=== PATIENT | female | born 1960 | race Caucasian/White ===

== ENCOUNTER 2016-11-16 14:08 | Inpatient (IN) | payer OTHER ==
[~2016-11-16] VITALS: Ht 147.3 cm; Wt 108.4 kg
--- NOTE | ~2016-11-16 | EKG ---
[place], [place] ELECTROCARDIOGRAM REPORT NAME: REN SOOD UNIT #: [id number] ROOM: [facility] DOCTOR: JEANA MACIAS MD BIRTHDATE: [birth year] DOS: 11/16/2016 TIME: 1501 hours. Sinus tachycardia at 109 beats per minute. Low voltage in precordial leads. No previous tracing is available for comparison. JEANA MACIAS MD CM:EKGRPT:ELECTROCARDIOGRAM REPORT [id number] JEANA MACIAS MD
--- NOTE | ~2016-11-16 | EKG ---
[place], [place] ELECTROCARDIOGRAM REPORT NAME: REN SOOD UNIT #: [id number] ROOM: [facility] DOCTOR: JEANA MACIAS MD BIRTHDATE: [birth year] DOS: 11/17/2016 TIME: 0648 hours. Sinus tachycardia with normal sinus rhythm at 99 beats per minute. The tracing is normal. No previous tracing is available for comparison. JEANA MACIAS MD CM:EKGRPT:ELECTROCARDIOGRAM REPORT [id number] JEANA MACIAS MD
[~2016-11-16 14:08] MED LIST: AMLODIPINE BESY1 TAB PO; AMLODIPINE BESYL5 MG PO; ATORVASTATIN CA10 M1 PO; AVELOX400 MG PO; CLARITIN10 MG PO; COZAAR100 MG PO; CYCLOBENZAPRINE5 M3 PO; CYMBALTA60 MG PO; DOXYCYCLINE MO100 M1 PO; FLUTICASON0.05 MG/AC NAS; GABAPENTIN600 MG PO; GEMFIBROZIL600 MG PO; HYDROCHLOROTHIA25 M1 PO; HYDROCODONE BIT1 T11 PO; INVANZ1 GM/50 ML IV; LAMICTAL200 MG PO; LANTUS100 U/ML SC; LIPITOR10 MG PO; LOPRESSOR25 MG PO; Lopressor25 MG PO; NATURE'S BLEND F1 MG PO; NORVASC10 MG PO; NOVOLOG10 ML SC; PRAVASTATIN SOD20 MG PO; PRILOSEC20 M1 PO; SINGULAIR10 M1 PO; VENTOLIN H0.09 MG/AC INH
[2016-11-16 14:14] VITALS: BP 144/69
[2016-11-16 15:00] VITALS: BP 134/62
[2016-11-16 15:03] LABS: BASO % 0.3 % (0.0-1.0); EOS # 0.2 10*3/uL (0.0-0.4); EOS % 1.1 % (1.0-4.0); HEMATOCRIT 37.3 % (37.0-47.0); HEMOGLOBIN 11.8 g/dl (12.0-16.0); IG # 0.1 10*3/uL (0.0-0.1); LYMPH # 3.8 10*3/uL (1.3-4.4); LYMPH % 27.4 % (27.0-41.0); MEAN CELL VOLUME 92.3 fl (81.0-99.0); MEAN CORPUSCULAR HGB 29.2 pg (27.0-31.0); MEAN CORPUSCULAR HGB CONC 31.6 g/dl (33.0-37.0); MEAN PLATELET VOLUME 10.7 fl (9.6-12.3); MONO # 0.9 10*3/uL (0.1-1.0); MONO % 6.4 % (3.0-9.0); NEUT % 64.3 % (47.0-73.0); PLATELET COUNT AUTOMATED 315 10*3/uL (130-400); RED BLOOD COUNT 4.04 10*6/uL (4.10-5.10); RED CELL DISTRI WIDTH 13.4 % (0-14.5); WHITE BLOOD COUNT 13.9 10*3/uL (4.8-10.8)
[2016-11-16 15:33] LABS: ALKALINE PHOSPHATASE 122 U/L (45-117); BILIRUBIN, TOTAL 0.2 mg/dl (0.2-1.0); BUN 21 mg/dl (7-24); CARBON DIOXIDE 25 mmol/L (21-32); CHLORIDE 103 mmol/L (98-107); EST GLOM FILT AFRICAN AMERICAN > 60 ml/min; GLUCOSE 210 mg/dL (65-99); POTASSIUM 3.9 mmol/L (3.5-5.1); SGOT/AST 24 IU/L (3-35); SGPT/ALT 23 U/L (12-78); SODIUM 139 mmol/L (136-145); TOTAL PROTEIN 6.7 gm/dL (6.4-8.2)
[2016-11-16 15:34] LABS: INTERNATIONAL NORM RATIO 0.9 (2.0-3.5); PROTHROMBIN TIME 9.6 SECONDS (9.0-12.4)
[2016-11-16 15:39] LABS: TROPONIN I < 0.015 ng/ml (<0.045)
[2016-11-16 16:00] VITALS: BP 140/62
[2016-11-16 17:00] VITALS: BP 136/70
[2016-11-16 18:45] VITALS: BP 130/50
[2016-11-16] MEDS ORDERED: ATIVAN0.5 MG PO (18:56)
[2016-11-16 19:06] LABS: BILIRUBIN NEGATIVE (NEGATIVE); BLOOD 3+ (NEGATIVE); CLARITY CLEAR (CLEAR); COLOR YELLOW (YELLOW); GLUCOSE NEGATIVE (NEGATIVE); KETONE NEGATIVE (NEGATIVE); LEUKO ESTERASE NEGATIVE (NEGATIVE); NITRITE NEGATIVE (NEGATIVE); PROTEIN 2+ (NEGATIVE); UROBILINOGEN 0.2 E.U./dl (0.2-1.0)
[2016-11-16 19:13] LABS: BACTERIA 4+; RBC 16-20 rbc/hpf (0-2); URINE REFLEX COMMENT YES (NO)
[2016-11-16 20:00] VITALS: BP 149/50
[2016-11-17] VITALS: BP 107/55
[2016-11-17 06:58] LABS: BASO % 0.3 % (0.0-1.0); EOS # 0.2 10*3/uL (0.0-0.4); EOS % 1.6 % (1.0-4.0); HEMATOCRIT 38.7 % (37.0-47.0); IG # 0.1 10*3/uL (0.0-0.1); LYMPH # 3.3 10*3/uL (1.3-4.4); MEAN CELL VOLUME 93.3 fl (81.0-99.0); MEAN CORPUSCULAR HGB 28.9 pg (27.0-31.0); MEAN PLATELET VOLUME 10.6 fl (9.6-12.3); MONO # 0.9 10*3/uL (0.1-1.0); MONO % 7.3 % (3.0-9.0); NEUT # 8.1 10*3/uL (2.3-7.9); NEUT % 64.3 % (47.0-73.0); PLATELET COUNT AUTOMATED 315 10*3/uL (130-400); RED BLOOD COUNT 4.15 10*6/uL (4.10-5.10); RED CELL DISTRI WIDTH 13.5 % (0-14.5); WHITE BLOOD COUNT 12.6 10*3/uL (4.8-10.8)
[2016-11-17 07:10] LABS: HEMOGLOBIN A1c 10.9 % (4.8-5.6)
[2016-11-17 07:28] LABS: ALBUMIN 3.1 gm/dl (3.1-4.5); CARBON DIOXIDE 29 mmol/L (21-32); CHLORIDE 105 mmol/L (98-107); GLUCOSE 160 mg/dL (65-99); MAGNESIUM 2.1 mg/dL (1.5-2.1); POTASSIUM 3.8 mmol/L (3.5-5.1); SODIUM 140 mmol/L (136-145)
[2016-11-17 07:29] LABS: INTERNATIONAL NORM RATIO 0.9 (2.0-3.5); PROTHROMBIN TIME 9.6 SECONDS (9.0-12.4)
[2016-11-17 07:37] LABS: ALKALINE PHOSPHATASE 115 U/L (45-117); BILIRUBIN, TOTAL 0.2 mg/dl (0.2-1.0); BUN 14 mg/dl (7-24); CHOLESTEROL 156 mg/dL (<200); EST GLOM FILT AFRICAN AMERICAN > 60 ml/min; FREE T4 1.08 ng/dl (0.76-1.46); HDL CHOLESTEROL 58 mg/dl (40-60); LDL CHOLESTEROL 62 mg/dL (9-159); PHOSPHOROUS 4.1 mg/dL (2.5-4.9); SGOT/AST 23 IU/L (3-35); SGPT/ALT 25 U/L (12-78); TOTAL PROTEIN 6.4 gm/dL (6.4-8.2); TRIGLYCERIDES 181 mg/dl (<150); VLDL CHOLESTEROL 36 mg/dL (6-40)
[2016-11-17 08:00] VITALS: BP 150/72
[2016-11-17 12:00] VITALS: BP 111/62
[2016-11-17 16:00] VITALS: BP 130/57
[2016-11-17 20:00] VITALS: BP 139/53
[2016-11-18] VITALS: BP 126/68
[2016-11-18 08:00] VITALS: BP 92/54
[2016-11-18 12:00] VITALS: BP 154/80
[2016-11-18] MEDS ORDERED: D-1000 185 MG-11 TAB PO (12:27)
== END 2016-11-18 14:41 | disposition home or self-care (01) | DRG 641 ==
LOC: ED 14:08 → 5E 17:22 → EDHOLD 17:22 → 5E 18:01
PROVIDERS: Family Medicine; Internal Medicine; Physician Assistant
DX: E86.0 Dehydration (principal); K52.9 Noninfective gastroenteritis and colitis, unspecified; I11.0 Hypertensive heart disease with heart failure; E44.0 Moderate protein-calorie malnutrition; I50.32 Chronic diastolic (congestive) heart failure; E11.65 Type 2 diabetes mellitus with hyperglycemia; F33.9 Major depressive disorder, recurrent, unspecified; Z68.42 Body mass index [BMI] 45.0-49.9, adult; E78.5 Hyperlipidemia, unspecified; F41.9 Anxiety disorder, unspecified; J45.909 Unspecified asthma, uncomplicated; R00.0 Tachycardia, unspecified; E66.01 Morbid (severe) obesity due to excess calories; D64.9 Anemia, unspecified; E55.9 Vitamin D deficiency, unspecified; K21.9 Gastro-esophageal reflux disease without esophagitis; G47.33 Obstructive sleep apnea (adult) (pediatric); Z87.81 Personal history of (healed) traumatic fracture; Z82.49 Family history of ischemic heart disease and other diseases of the circulatory system; Z83.6 Family history of other diseases of the respiratory system; Z79.899 Other long term (current) drug therapy; Z79.4 Long term (current) use of insulin; Z88.6 Allergy status to analgesic agent; Z98.891 History of uterine scar from previous surgery; Z90.49 Acquired absence of other specified parts of digestive tract

== ENCOUNTER 2017-07-12 14:27 | Inpatient (IN) | payer OTHER ==
[~2017-07-12] VITALS: Ht 157.4 cm; Wt 83.6 kg
--- NOTE | ~2017-07-12 | PROC NOTE ---
[place], [place] PROCEDURE NOTE NAME: RNE SOOD UNIT #: [id number] ROOM: [facility] DOCTOR: CONSUELO MOLINA DO BIRTHDATE: [birth year] DOS: 07/13/2017 PROCEDURE: Lumbar puncture. INDICATION: Increased confusion, sepsis. The patient was able to cooperate with the procedure and ____ no verbal consent could be obtained as she is unable to give it at this time due to her mental status. The patient was placed on a monitor with airway cart and crash cart at bedside, nonrebreather was placed on the patient, 80 mg of ketamine was then administered via IV push. The patient was laid in the lateral recumbent side. Landmarks were noted in the usual fashion using the iliac crest as a guideline. Skin was cleansed with povidone in three concentric circles using three separate swabs. Sterile drape was placed. The patient was anesthetized with 1% lidocaine. Lumbar puncture needle was inserted. The FOOD SERVICE SALES REPRESENTATIVES space could not be cannulated. No IV fluid was obtained. Procedure was unsuccessful. CONSUELO MOLINA DO CM:PROCNOTE:PROCEDURE NOTE [id number] CONSUELO MOLINA DO
[~2017-07-12 14:27] MED LIST changes: +ATIVAN0.5 MG PO; +D-1000 185 MG-11 TAB PO
[2017-07-12 14:39] VITALS: BP 148/74
[2017-07-12 15:00] VITALS: BP 148/70
[2017-07-12 15:04] LABS: HEMATOCRIT 40.7 % (37.0-47.0); HEMOGLOBIN 12.9 g/dl (12.0-16.0); MEAN CORPUSCULAR HGB 31.4 pg (27.0-31.0); MEAN CORPUSCULAR HGB CONC 31.7 g/dl (33.0-37.0); MEAN PLATELET VOLUME 10.2 fl (9.6-12.3); PLATELET COUNT AUTOMATED 402 10*3/uL (130-400); RED BLOOD COUNT 4.11 10*6/uL (4.10-5.10); RED CELL DISTRI WIDTH 14.1 % (0-14.5); WHITE BLOOD COUNT 25.3 10*3/uL (4.8-10.8)
[2017-07-12] MEDS ORDERED: LOPID600 M1 PO (15:09)
[2017-07-12 15:20] LABS: ALBUMIN 2.3 gm/dl (3.1-4.5); CREATININE 1.24 mg/dL (0.55-1.02); POTASSIUM 4.9 mmol/L (3.5-5.1); TOTAL PROTEIN 7.6 gm/dL (6.4-8.2)
[2017-07-12 15:30] VITALS: BP 146/80
[2017-07-12 15:33] LABS: POLYCHROMASIA SLIGHT; TOTAL CELLS COUNTED 100 #CELLS
[2017-07-12 15:34] LABS: PLATELET SUFFICIENCY HIGH (NORMAL)
[2017-07-12 15:42] LABS: BILIRUBIN 1+ (NEGATIVE); BLOOD 3+ (NEGATIVE); CLARITY CLOUDY (CLEAR); COLOR YELLOW (YELLOW); GLUCOSE 3+ (NEGATIVE); KETONE 3+ (NEGATIVE); LEUKO ESTERASE NEGATIVE (NEGATIVE); NITRITE NEGATIVE (NEGATIVE); SPECIFIC GRAVITY 1.025 (1.005-1.030); UROBILINOGEN 0.2 E.U./dl (0.2-1.0)
[2017-07-12 15:52] LABS: RBC TNTC rbc/hpf (0-2)
[2017-07-12 15:53] LABS: BACTERIA 2+
[2017-07-12 16:00] VITALS: BP 166/81
[2017-07-12 16:17] LABS: ABG HCO3 6.2 mmol/l (22-26); ABG O2 SATURATION 96.7 % (95-97); ARTERIAL BLOOD GAS PCO2 16.8 mmHg (35-45)
[2017-07-12 16:20] LABS: ABG BASE EXCESS -20.9 mmol/L (-2.0-2.0); ARTERIAL BLOOD GAS PH 7.189 (7.35-7.45)
[2017-07-12 17:00] VITALS: BP 153/73
[2017-07-12 19:04] LABS: URINE AMPHETAMINES < 1000 (1000ng/ml); URINE BARBITURATES < 200 (200ng/ml); URINE BENZODIAZEPINES < 200 (200ng/ml); URINE CANNABINOIDS (THC) < 50 (50ng/ml); URINE COCAINE < 300 (300ng/ml); URINE METHADONE < 300 (300ng/ml); URINE OPIATES < 300 (300ng/ml); URINE PHENCYCLIDINE < 25 (25ng/ml)
[2017-07-12 20:00] VITALS: BP 141/72
[2017-07-12 20:31] LABS: BUN 13 mg/dl (7-24); CHLORIDE 113 mmol/L (98-107); CREATININE 1.02 mg/dL (0.55-1.02); SODIUM 145 mmol/L (136-145)
[2017-07-12 23:22] LABS: BUN 12 mg/dl (7-24); CHLORIDE 118 mmol/L (98-107); CREATININE 0.94 mg/dL (0.55-1.02); POTASSIUM 3.3 mmol/L (3.5-5.1); SODIUM 148 mmol/L (136-145)
[2017-07-13] VITALS: BP 144/47
[2017-07-13 02:31] LABS: BUN 11 mg/dl (7-24); CHLORIDE 120 mmol/L (98-107); CREATININE 0.79 mg/dL (0.55-1.02); POTASSIUM 2.8 mmol/L (3.5-5.1); SODIUM 151 mmol/L (136-145)
[2017-07-13 04:00] VITALS: BP 151/60
[2017-07-13 05:55] LABS: HEMATOCRIT 35.2 % (37.0-47.0); HEMOGLOBIN 11.2 g/dl (12.0-16.0); MEAN CELL VOLUME 96.7 fl (81.0-99.0); MEAN CORPUSCULAR HGB 30.8 pg (27.0-31.0); MEAN CORPUSCULAR HGB CONC 31.8 g/dl (33.0-37.0); PLATELET COUNT AUTOMATED 329 10*3/uL (130-400); RED BLOOD COUNT 3.64 10*6/uL (4.10-5.10); RED CELL DISTRI WIDTH 14.1 % (0-14.5); WHITE BLOOD COUNT 19.2 10*3/uL (4.8-10.8)
[2017-07-13 05:58] LABS: ALBUMIN 1.7 gm/dl (3.1-4.5); ALKALINE PHOSPHATASE 135 U/L (45-117); BUN 12 mg/dl (7-24); CHLORIDE 120 mmol/L (98-107); CHOLESTEROL 152 mg/dL (<200); CREATININE 0.79 mg/dL (0.55-1.02); HDL CHOLESTEROL 35 mg/dl (40-60); LDL CHOLESTEROL 73 mg/dL (9-159); PHOSPHOROUS 1.6 mg/dL (2.5-4.9); POTASSIUM 3.7 mmol/L (3.5-5.1); SGOT/AST 66 IU/L (3-35); SGPT/ALT 18 U/L (12-78); SODIUM 150 mmol/L (136-145); TOTAL PROTEIN 5.9 gm/dL (6.4-8.2); TRIGLYCERIDES 219 mg/dl (<150); VLDL CHOLESTEROL 44 mg/dL (6-40)
[2017-07-13 06:00] LABS: TROPONIN I 0.625 ng/ml (<0.045)
[2017-07-13 06:09] LABS: ACT PARTIAL THROMBO TIME 27.5 SECONDS (20.8-31.5); INTERNATIONAL NORM RATIO 0.9 (2.0-3.5)
[2017-07-13 06:28] LABS: BURR CELLS FEW; PLATELET SUFFICIENCY NORMAL (NORMAL); TOTAL CELLS COUNTED 100 #CELLS
[2017-07-13 06:46] LABS: VITAMIN D, 25-HYDROXY 9.1 ng/mL (30-100)
[2017-07-13 08:00] VITALS: BP 142/63
[2017-07-13 08:54] LABS: BUN 12 mg/dl (7-24); CHLORIDE 122 mmol/L (98-107); CREATININE 0.89 mg/dL (0.55-1.02); POTASSIUM 3.7 mmol/L (3.5-5.1); SODIUM 151 mmol/L (136-145)
[2017-07-13 09:30] LABS: ABG HCO3 18.5 mmol/l (22-26); ARTERIAL BLOOD GAS PCO2 38.6 mmHg (35-45); ARTERIAL BLOOD GAS PH 7.299 (7.35-7.45)
[2017-07-13 09:32] LABS: ABG BASE EXCESS -7.1 mmol/L (-2.0-2.0)
[2017-07-13 11:46] LABS: BUN 12 mg/dl (7-24); CHLORIDE 121 mmol/L (98-107); CREATININE 0.88 mg/dL (0.55-1.02); POTASSIUM 3.8 mmol/L (3.5-5.1); SODIUM 149 mmol/L (136-145)
[2017-07-13 12:00] VITALS: BP 125/65
[2017-07-13 16:00] VITALS: BP 133/89
[2017-07-13] MEDS ORDERED: ENOXAPARIN100 MG/1 M SC (17:25)
[2017-07-13 19:42] VITALS: BP 124/53
[2017-07-17 22:06] LABS: PARAINFLUENZA 2 CF Negative (Neg:<1:8); PARAINFLUENZA 3 CF 1:32 (Neg:<1:8)
[2017-07-18 09:07] LABS: MYCOPLASMA PNEUMONIAE IGG 100 U/mL (0-99); MYCOPLASMA PNEUMONIAE IGG 137 U/mL (0-99); MYCOPLASMA PNEUMONIAE IGM <770 U/mL (0-769)
== END 2017-07-13 20:01 | disposition short-term general hospital (02) | DRG 871 ==
LOC: ED 14:27 → ICCU 16:00 → EDHOLD 16:00 → ICCU 16:08
PROVIDERS: Emergency Medicine; Hospitalist; Internal Medicine
PROC: 02HV33Z Insertion of Infusion Device into Superior Vena Cava, Percutaneous Approach (ICD-10-PCS; 2017-07-12)
PROC: B548ZZA Ultrasonography of Superior Vena Cava, Guidance (ICD-10-PCS; 2017-07-12)
PROC: 00JU3ZZ Inspection of Spinal Canal, Percutaneous Approach (ICD-10-PCS; principal; 2017-07-13)
DX: A41.9 Sepsis, unspecified organism (principal); E10.10 Type 1 diabetes mellitus with ketoacidosis without coma; N17.0 Acute kidney failure with tubular necrosis; G93.41 Metabolic encephalopathy; E43 Unspecified severe protein-calorie malnutrition; J18.9 Pneumonia, unspecified organism; E10.40 Type 1 diabetes mellitus with diabetic neuropathy, unspecified; I50.32 Chronic diastolic (congestive) heart failure; L97.929 Non-pressure chronic ulcer of unspecified part of left lower leg with unspecified severity; I24.8 Other forms of acute ischemic heart disease; R65.20 Severe sepsis without septic shock; D47.3 Essential (hemorrhagic) thrombocythemia; B37.2 Candidiasis of skin and nail; F41.9 Anxiety disorder, unspecified; G89.29 Other chronic pain; F32.9 Major depressive disorder, single episode, unspecified; M25.511 Pain in right shoulder; M25.512 Pain in left shoulder; K21.9 Gastro-esophageal reflux disease without esophagitis; J45.909 Unspecified asthma, uncomplicated; E66.01 Morbid (severe) obesity due to excess calories; G47.33 Obstructive sleep apnea (adult) (pediatric); R00.0 Tachycardia, unspecified; D72.810 Lymphocytopenia; E78.2 Mixed hyperlipidemia; R74.0 Nonspecific elevation of levels of transaminase and lactic acid dehydrogenase [LDH]; E53.8 Deficiency of other specified B group vitamins; D64.9 Anemia, unspecified; E55.9 Vitamin D deficiency, unspecified; I11.0 Hypertensive heart disease with heart failure; E78.5 Hyperlipidemia, unspecified; R74.8 Abnormal levels of other serum enzymes; Z90.49 Acquired absence of other specified parts of digestive tract; Z88.6 Allergy status to analgesic agent; Z79.4 Long term (current) use of insulin; Z79.899 Other long term (current) drug therapy; Z83.6 Family history of other diseases of the respiratory system; Z82.49 Family history of ischemic heart disease and other diseases of the circulatory system; Z91.19 Patient's noncompliance with other medical treatment and regimen; Z68.33 Body mass index [BMI] 33.0-33.9, adult

== ENCOUNTER 2017-08-22 21:05 | Emergency (ER) | payer OTHER ==
[~2017-08-22] VITALS: Ht 167.6 cm; Wt 99.8 kg
[~2017-08-22 21:05] MED LIST changes: +ENOXAPARIN100 MG/1 M SC; +LOPID600 M1 PO
[2017-08-22 23:22] LABS: BASO % 0.4 % (0.0-1.0); EOS # 0.2 10*3/uL (0.0-0.4); EOS % 1.8 % (1.0-4.0); HEMATOCRIT 31.6 % (37.0-47.0); HEMOGLOBIN 10.1 g/dl (12.0-16.0); LYMPH # 1.9 10*3/uL (1.3-4.4); LYMPH % 17.1 % (27.0-41.0); MEAN CELL VOLUME 93.8 fl (81.0-99.0); MEAN PLATELET VOLUME 9.5 fl (9.6-12.3); MONO # 0.9 10*3/uL (0.1-1.0); MONO % 7.9 % (3.0-9.0); NEUT # 8.1 10*3/uL (2.3-7.9); NEUT % 72.4 % (47.0-73.0); PLATELET COUNT AUTOMATED 288 10*3/uL (130-400); RED BLOOD COUNT 3.37 10*6/uL (4.10-5.10); RED CELL DISTRI WIDTH 14.7 % (0-14.5); WHITE BLOOD COUNT 11.1 10*3/uL (4.8-10.8)
[2017-08-22 23:36] LABS: ALBUMIN 2.8 gm/dl (3.1-4.5); ALKALINE PHOSPHATASE 122 U/L (45-117); BUN 18 mg/dl (7-24); CHLORIDE 101 mmol/L (98-107); CREATININE 0.86 mg/dL (0.55-1.02); POTASSIUM 4.1 mmol/L (3.5-5.1); SGOT/AST 12 IU/L (3-35); SGPT/ALT 15 U/L (12-78); SODIUM 137 mmol/L (136-145)
== END 2017-08-23 02:22 | disposition home or self-care (01) ==
LOC: ED 21:05
PROVIDERS: Physician Assistant
DX: S40.012A Contusion of left shoulder, initial encounter (principal); S00.83XA Contusion of other part of head, initial encounter; E11.65 Type 2 diabetes mellitus with hyperglycemia; Z98.890 Other specified postprocedural states; Z90.49 Acquired absence of other specified parts of digestive tract; Z79.899 Other long term (current) drug therapy; Z79.4 Long term (current) use of insulin; Z88.6 Allergy status to analgesic agent; W01.0XXA Fall on same level from slipping, tripping and stumbling without subsequent striking against object, initial encounter; Y93.89 Activity, other specified; Y92.89 Other specified places as the place of occurrence of the external cause; Y99.9 Unspecified external cause status

== ENCOUNTER → 2017-11-21 | Outpatient (CLI) | payer OTHER ==
[2017-11-21 10:40] LABS: ALBUMIN 2.9 gm/dl (3.1-4.5); ALKALINE PHOSPHATASE 125 U/L (45-117); BUN 20 mg/dl (7-24); CHLORIDE 104 mmol/L (98-107); CHOLESTEROL 139 mg/dL (<200); CREATININE 0.98 mg/dL (0.55-1.02); HDL CHOLESTEROL 55 mg/dl (40-60); LDL CHOLESTEROL 62 mg/dL (9-159); POTASSIUM 4.6 mmol/L (3.5-5.1); SGOT/AST 10 IU/L (3-35); SGPT/ALT 19 U/L (12-78); SODIUM 139 mmol/L (136-145); TRIGLYCERIDES 109 mg/dl (<150); VLDL CHOLESTEROL 22 mg/dL (6-40)
[2017-11-21 10:53] LABS: HEMATOCRIT 36.8 % (37.0-47.0); HEMOGLOBIN 11.1 g/dl (12.0-16.0); MEAN CELL VOLUME 87.6 fl (81.0-99.0); MEAN CORPUSCULAR HGB 26.4 pg (27.0-31.0); MEAN CORPUSCULAR HGB CONC 30.2 g/dl (33.0-37.0); MEAN PLATELET VOLUME 10.9 fl (9.6-12.3); RED BLOOD COUNT 4.2 10*6/uL (4.10-5.10); RED CELL DISTRI WIDTH 13.8 % (0-14.5); WHITE BLOOD COUNT 9.9 10*3/uL (4.8-10.8)
== END | disposition home or self-care (01) ==
LOC: LAB 09:39
PROVIDERS: Registered Nurse Flight
DX: Z13.29 Encounter for screening for other suspected endocrine disorder (principal); E10.65 Type 1 diabetes mellitus with hyperglycemia; I10 Essential (primary) hypertension; E78.00 Pure hypercholesterolemia, unspecified; E55.9 Vitamin D deficiency, unspecified

== ENCOUNTER 2018-01-01 15:17 | Emergency (ER) | payer OTHER ==
[~2018-01-01] VITALS: Ht 149.8 cm; Wt 93.0 kg
[2018-01-01] MEDS ORDERED: Motrin,Rufen800 MG PO (17:08)
== END 2018-01-01 17:04 | disposition home or self-care (01) ==
LOC: ED 15:17
DX: R60.0 Localized edema (principal); M25.532 Pain in left wrist; I11.0 Hypertensive heart disease with heart failure; I50.32 Chronic diastolic (congestive) heart failure; J45.909 Unspecified asthma, uncomplicated; G89.29 Other chronic pain; K21.9 Gastro-esophageal reflux disease without esophagitis; E78.5 Hyperlipidemia, unspecified; E66.01 Morbid (severe) obesity due to excess calories; E11.40 Type 2 diabetes mellitus with diabetic neuropathy, unspecified; Z88.6 Allergy status to analgesic agent; Z79.899 Other long term (current) drug therapy; Z79.4 Long term (current) use of insulin; Z90.49 Acquired absence of other specified parts of digestive tract

== ENCOUNTER 2019-06-16 14:30 | Emergency (ER) | payer OTHER ==
[~2019-06-16 14:30] MED LIST changes: +Motrin,Rufen800 MG PO
[2019-06-16] MEDS ORDERED: PREDNISONE20 M1 PO ×2 (16:24→16:37)
[2019-06-16] MEDS ORDERED: ALLEGRA ALLERG180 M2 PO ×2 (16:24→16:37)
== END 2019-06-16 16:31 | disposition home or self-care (01) ==
LOC: ED 14:30
DX: H10.13 Acute atopic conjunctivitis, bilateral (principal); R60.0 Localized edema; E11.9 Type 2 diabetes mellitus without complications; I10 Essential (primary) hypertension; E78.00 Pure hypercholesterolemia, unspecified

== ENCOUNTER 2020-01-11 08:14 | Emergency (ER) | payer OTHER ==
[~2020-01-11] VITALS: Ht 152.4 cm; Wt 133.8 kg
[~2020-01-11 08:14] MED LIST changes: +ALLEGRA ALLERG180 M2 PO; +PREDNISONE20 M1 PO
== END 2020-01-11 09:40 | disposition home or self-care (01) ==
LOC: ED 08:14
DX: S40.012A Contusion of left shoulder, initial encounter (principal); E11.9 Type 2 diabetes mellitus without complications; I10 Essential (primary) hypertension; Z79.82 Long term (current) use of aspirin; Z79.899 Other long term (current) drug therapy; Z79.4 Long term (current) use of insulin; W06.XXXA Fall from bed, initial encounter; Y93.89 Activity, other specified; Y92.89 Other specified places as the place of occurrence of the external cause; Y99.8 Other external cause status

== ENCOUNTER 2020-01-12 18:54 | Inpatient (IN) | payer OTHER ==
[~2020-01-12] VITALS: Ht 152.4 cm; Wt 97.3 kg
[2020-01-12 19:04] VITALS: BP 150/67
[2020-01-12 20:11] LABS: BASO % 0.3 % (0.0-1.0); EOS # 0.3 10*3/uL (0.0-0.4); EOS % 1.9 % (1.0-4.0); HEMATOCRIT 42.6 % (37.0-47.0); LYMPH # 2.5 10*3/uL (1.3-4.4); LYMPH % 18.6 % (27.0-41.0); MEAN CELL VOLUME 90.4 fl (81.0-99.0); MEAN CORPUSCULAR HGB 28.2 pg (27.0-31.0); MEAN CORPUSCULAR HGB CONC 31.2 g/dl (33.0-37.0); MONO # 0.7 10*3/uL (0.1-1.0); MONO % 5.3 % (3.0-9.0); NEUT % 73.3 % (47.0-73.0); PLATELET COUNT AUTOMATED 379 10*3/uL (130-400); RED BLOOD COUNT 4.71 10*6/uL (4.10-5.10); RED CELL DISTRI WIDTH 13.5 % (0-14.5); WHITE BLOOD COUNT 13.6 10*3/uL (4.8-10.8)
[2020-01-12 20:30] LABS: ALBUMIN 2.7 gm/dl (3.1-4.5); BUN 21 mg/dl (7-24); CHLORIDE 106 mmol/L (98-107); CREATININE 1.36 mg/dL (0.55-1.02); POTASSIUM 4.9 mmol/L (3.5-5.1); SGOT/AST 13 IU/L (3-35); SGPT/ALT 16 U/L (12-78); SODIUM 137 mmol/L (136-145); TOTAL PROTEIN 7.1 gm/dL (6.4-8.2)
[2020-01-12 20:33] LABS: ALKALINE PHOSPHATASE 119 U/L (45-117); TROPONIN I 0.018 ng/ml (<0.045)
[2020-01-12 21:06] LABS: BILIRUBIN Negative; BLOOD 1+ (Negative); CLARITY Clear (Clear); COLOR Yellow (Yellow); GLUCOSE 3+; KETONE Negative; LEUKO ESTERASE Negative (Negative); NITRITE Negative (Negative); SPECIFIC GRAVITY 1.025 (1.001-1.030); UROBILINOGEN 0.2 E.U./dl (0.0-1.0)
[2020-01-12 21:17] VITALS: BP 152/69
[2020-01-12 21:17] LABS: BACTERIA 1+; WBC 16-20 wbc/hpf (0-5)
[2020-01-12 21:57] VITALS: BP 151/63
--- NOTE | 2020-01-12 21:57 | NUR ---
Time: 2156 A 59 year old FEMALE admitted to 4E under services of MELVI ALDRIDGE DO. Pt. arrived via stretcher from ER. Chief complaint: CHERYLE. CODIE MONTES
--- NOTE | 2020-01-12 22:06 | NUR ---
PATIENT STATES SHE DOES NOT KNOW HER HOME MEDICATIONS. WILL CALL PHARMACY IN THE MORNING. CLOSED AT THIS TIME
--- NOTE | 2020-01-12 22:25 | NUR ---
DR ARENAS AWARE OF EXCORATION AND WOUNDS. ORDERS TAKEN
--- NOTE | 2020-01-12 22:27 | NUR ---
UNABLE TO DO ORTHOSTATIC BLOOD PRESSURES AT THIS TIME. PATIENT STATES SHE CANNOT SIT OR STAND.
[2020-01-13] VITALS: BP 155/56
--- NOTE | 2020-01-13 04:58 | NUR ---
BED BATH AND LINEN CHANGE DONE AT THIS TIME. PATIENT DENIES ANY NEEDS. BED IN LOWEST POSITION, CALL LIGHT IN REACH
[2020-01-13 06:29] LABS: BASO % 0.4 % (0.0-1.0); EOS # 0.3 10*3/uL (0.0-0.4); EOS % 2.2 % (1.0-4.0); HEMATOCRIT 40.4 % (37.0-47.0); LYMPH # 3.2 10*3/uL (1.3-4.4); LYMPH % 28.3 % (27.0-41.0); MEAN CELL VOLUME 91.2 fl (81.0-99.0); MEAN CORPUSCULAR HGB 28.2 pg (27.0-31.0); MEAN CORPUSCULAR HGB CONC 30.9 g/dl (33.0-37.0); MEAN PLATELET VOLUME 11.1 fl (9.6-12.3); MONO # 0.7 10*3/uL (0.1-1.0); MONO % 5.9 % (3.0-9.0); NEUT # 7.1 10*3/uL (2.3-7.9); NEUT % 62.8 % (47.0-73.0); PLATELET COUNT AUTOMATED 347 10*3/uL (130-400); RED BLOOD COUNT 4.43 10*6/uL (4.10-5.10); RED CELL DISTRI WIDTH 13.2 % (0-14.5); WHITE BLOOD COUNT 11.3 10*3/uL (4.8-10.8)
[2020-01-13 06:44] LABS: ALBUMIN 2.5 gm/dl (3.1-4.5); BUN 18 mg/dl (7-24); CHLORIDE 110 mmol/L (98-107); CHOLESTEROL 137 mg/dL (<200); CREATININE 0.84 mg/dL (0.55-1.02); POTASSIUM 4.4 mmol/L (3.5-5.1); SGOT/AST 9 IU/L (3-35); SGPT/ALT 15 U/L (12-78); SODIUM 142 mmol/L (136-145)
[2020-01-13 06:51] LABS: ALKALINE PHOSPHATASE 103 U/L (45-117); HDL CHOLESTEROL 46 mg/dl (40-60); LDL CHOLESTEROL 57 mg/dL (9-159); TOTAL PROTEIN 6.5 gm/dL (6.4-8.2); TRIGLYCERIDES 172 mg/dl (<150); VLDL CHOLESTEROL 34 mg/dL (6-40)
[2020-01-13 08:00] VITALS: BP 156/85
--- NOTE | 2020-01-13 08:11 | NUR ---
Occupational therapy order and nursing screen received. Will follow up with patient for completion of an OT evaluation. Thank you. Marjorie Machado, OTR/L
--- NOTE | 2020-01-13 08:12 | NUR ---
PATIENT MEDICATED WITH PO TYLENOL PER ORDER FOR COMPLAINTS OF A HEADACHE AT THIS TIME. WILL MONITOR.
--- NOTE | 2020-01-13 08:27 | NUR ---
PHYSICAL THERAPY Nursing screen received and chart reviewed. Physical therapy order received. Will follow to complete PT evaluation. Thank you. Maral Mann,PT,DPT
--- NOTE | 2020-01-13 09:00 | NUR ---
Conductor Yard in to talk to patient. Patient states lives at home with son and ex . There are no steps in the home. Physician: [facility] Patient's level of ADLs: MODERATE ASSIST Patient has working utilities: all working DME: walker Follow-up physician's appointment after d/c: will be made by hospitalist nurse director upon discharge Does patient want to access PORTAL?: no Discharge plan discussed with patient, she states she lives at home with her son and her ex , she states she requires a lot of assistance with adls and ambulation, she has a walker at home. discussed with her a short term fdc for 5 days of rehab and 24 hour care. she was agreeable to this, she states she was a patient at [facility] and would like to return there for skilled care. will have habitat conservation planner contact [facility] and see if they will accept patient's insurance, case management will follow GARY MCGUIRE
--- NOTE | 2020-01-13 09:11 | NUR ---
Occupational Therapy evaluation completed on four with full evaluation to follow. Recommend occupational therapy per plan of care and SNF upon discharge. Patient presenting with LUE flaccidity at the L shoulder, elbow, and wrist with a fair- L grasp. Patient required Mod-Max Ax2 for transfers and mobility. Nursing made aware of patient's functional status and LUE flaccidity. Thank you for this referral. Marjorie Machado, OTR/L
--- NOTE | 2020-01-13 09:12 | NUR ---
PER PATIENT, TYLENOL WAS EFFECTIVE FOR HEADACHE.
[2020-01-13] MEDS ORDERED: ANORO ELLIPTA1 EACH INH (10:16)
[2020-01-13] MEDS ORDERED: LIPITOR10 MG PO (10:16)
[2020-01-13] MEDS ORDERED: LAMICTAL100 MG PO (10:17)
[2020-01-13] MEDS ORDERED: FENOFIBRATE145 M1 PO (10:17)
[2020-01-13] MEDS ORDERED: LISINOPRIL40 MG PO (10:18)
[2020-01-13] MEDS ORDERED: LOPRESSOR50 M1 PO (10:19)
[2020-01-13] MEDS ORDERED: BUSPAR15 MG PO (10:20)
[2020-01-13] MEDS ORDERED: METFORMIN HYD1000 MG PO (10:20)
[2020-01-13] MEDS ORDERED: GLIMEPIRIDE4 M1 PO (10:21)
[2020-01-13] MEDS ORDERED: NOVOLOG FL100 UNIT/2 SQ (10:22)
[2020-01-13] MEDS ORDERED: FLOMAX0.4 MG PO (10:22)
[2020-01-13] MEDS ORDERED: VITAMIN D3125 MCG PO (10:24)
[2020-01-13] MEDS ORDERED: TRESIBA FL100 UNIT/1 SQ (10:25)
[2020-01-13] MEDS ORDERED: CLARITIN10 MG PO (10:25)
--- NOTE | 2020-01-13 10:27 | NUR ---
PHYSICAL THERAPY Physical Therapy evaluation completed on 4th floor with full evaluation to follow. Recommend physical therapy per plan of care and SNF upon discharge. Thank you for this referral. Otilio Carpenter SPT Maral Mann PT,DPT
--- NOTE | 2020-01-13 10:57 | NUR ---
Referral faxed to [facility]. Noreen is stating [place] medicaid must stay in [place] or patient must agree and sign to change her insurance to [place] medicaid to go to their facility. In to see patient. She is stating she used to live in [place] but has since moved and lives in [place]. She doesn't want to change her medicaid and asked for a referral to [facility] in [facility]. Waiting on review/acceptance.
[2020-01-13 12:00] VITALS: BP 149/76
--- NOTE | 2020-01-13 13:17 | NUR ---
[place] PASS/RR signed by physician and electronically emailed to Melvi at [place] who will be submitting it to [facility].
[2020-01-13 16:15] VITALS: BP 175/89
--- NOTE | 2020-01-13 16:31 | NUR ---
pt c/o 11/23 left shoulder pain. medicated with norco and ice pack applied. will monitor.
[2020-01-13 20:00] VITALS: BP 138/45
--- NOTE | 2020-01-13 20:00 | NUR ---
PATIENT ASSISTED TO BSC WITH THIS RN AND QIANA CARREON. PATIENT IS WEAK, LEFT SIDED WEAKNESS NOTED. PATIENT STATES SHE HAS NOT BEEN ABLE TO USE HER LEFT ARM SINCE HER FALL AT HOME. ASSISTED BACK TO BED AND MADE COMFORTABLE. BED IN LOW POSITION, CALL LIGHT IN REACH
--- NOTE | 2020-01-13 20:20 | NUR ---
PATIENT'S SISTER ZEV CALLED. SHE STATES THAT SHE WANTS A "MEMORY TEST" DONE ON THE PATIENT BECAUSE SHE SEEMS MORE CONFUSED THAN NORMAL. SHE STATES THAT SHE DID NOT REMEMBER THAT THEIR AUNT 6 MONTHS AGO. SHE STATES SHE DOES NOT UNDERSTAND WHY THE PATIENT IS SO WEAK. SHE ALSO STATED THAT SHE IS EXTREMELY UPSET THAT THE PATIENT WAS DISCHARGED FROM THE EMERGENCY ROOM WITHOUT PROPER CARE EARLIER THIS WEEK. SHE STARTED YELLING AT THIS RN ON THE PHONE. I INFORMED HER THAT I AM A NURSE AND DO NOT WORK IN THE EMERGENCY ROOM. I APOLOGIZED THAT SHE IS UPSET, BUT THAT HER SISTER IS GETTING GREAT CARE HERE. SHE STATES SHE WANTS TO KNOW WHY SHE IS EVEN HERE AND WHAT WE ARE DOING FOR HER. SHE STATES THAT SHE DOES NOT WANT US TO JUST "SHIP HER TO A DETENTION" WITHOUT A PROPER DIAGNOSIS. I ASSURED HER THAT THE PATIENT WILL NOT GET SHIPPED TO A DETENTION BEFORE SHE IS READY. SHE STATES SHE WANTS A DOCTOR TO CALL HER TOMORROW AND EXPLAIN TO HER WHY SHE WAS SENT HOME FROM THE EMERGENCY ROOM PREVIOUSLY THIS WEEK. SHE ASKED WHAT THE PATIENT'S DIAGNOSES WERE. WHEN THIS RN TOLD HER THAT SHE IS HERE FOR UNCONTROLLED DIABETES AND FREQUENT FALLS, SHE STATED THAT HER SISTERS BLOOD SUGARS ARE CONTROLLED. WHEN THIS RN INFORMED HER THAT HER BLOOD SUGAR WAS 497 AND HER A1C IS 13.4, SHE STATED THAT HER NEPHEW DID NOT TELL HER ANY OF THAT. ALL OF THIS WAS DISCUSSED AFTER THE SISTER PROVIDED THE CORRECT PASSWORD. THE SISTER STATES SHE WANTS A PATIENT ADVOCATE TO CALL HER TOMORROW, ALONG WITH A DOCTOR, TO DISCUSS WHY THE PATIENT WAS DISCHARGED FROM THE ER EARLIER THIS WEEK.
--- NOTE | 2020-01-13 20:32 | NUR ---
FIRESTOPPER TECHNICIAN MANDY AWARE OF PATIENT'S SISTER REQUESTING A PATIENT ADVOCATE.
--- NOTE | 2020-01-13 20:32 | NUR ---
ZEV'S PHONE NUMBER [phone]
--- NOTE | 2020-01-13 20:38 | NUR ---
CALLED AND SPOKE WITH DR ARENAS REGARDING PATIENT'S SISTER CALLING AND HER CONCERNS.
--- NOTE | 2020-01-13 20:38 | NUR ---
DR ARENAS STATES PATIENT CAN HAVE SCHEDULED LOPRESSOR TONIGHT
--- NOTE | 2020-01-13 20:45 | NUR ---
DR ARENAS ON FLOOR TO SEE PATIENT
--- NOTE | 2020-01-13 21:19 | NUR ---
MEDICATED WITH PRN NORCO FOR C/O PAIN IN LEFT SHOULDER RATED 8/10 ON A 0/10 PAIN SCALE. WILL MONITOR
--- NOTE | 2020-01-13 22:19 | NUR ---
MEDICATION SOMEWHAT EFFECTIVE PER PATIENT
[2020-01-14] VITALS: BP 128/59
--- NOTE | 2020-01-14 01:35 | NUR ---
MEDICATED WITH PRN NORCO FOR C/O LEFT SHOULDER PAIN. WILL MONITOR
--- NOTE | 2020-01-14 02:35 | NUR ---
PATIENT RESTING WITH EYES CLOSED. MEDICATION SEEMS EFFECTIVE
--- NOTE | 2020-01-14 03:19 | NUR ---
PRODUCTION METAL SPRAYER LYNNE AWARE OF PATIENT'S SISTER REQUESTING PATIENT ADVOCATE
[2020-01-14 06:33] LABS: ALBUMIN 2.6 gm/dl (3.1-4.5); BUN 23 mg/dl (7-24); CHLORIDE 108 mmol/L (98-107); CREATININE 1.04 mg/dL (0.55-1.02); POTASSIUM 4.9 mmol/L (3.5-5.1); SGOT/AST 12 IU/L (3-35); SGPT/ALT 17 U/L (12-78); SODIUM 138 mmol/L (136-145); TOTAL PROTEIN 6.8 gm/dL (6.4-8.2)
[2020-01-14 06:34] LABS: ALKALINE PHOSPHATASE 108 U/L (45-117)
--- NOTE | 2020-01-14 07:01 | NUR ---
Patient accepted to [facility] and [place], [place] pass/rr submitted to [facility], waiting for approval.
--- NOTE | 2020-01-14 07:52 | NUR ---
PT MEDICATED WITH NORCO 1 TAB FOR C/O LEFT SHOULDER PAIN.
[2020-01-14 08:00] VITALS: BP 158/87
--- NOTE | 2020-01-14 08:09 | NUR ---
OT NOTE Upon arrival pt was laying supine in bed agreeable to 25 minute OT session. Identified by name and date of with complaints of 10/10 Left shoulder pain. Transfer supine to EOB MaxA x2. sitting balance EOB P- due to retrograde posture leaning backwards requiring maxA to correct. Sit-stand from EOB modA x2 throughout static stading pt presetented with retrograde posture and B knees bucking requiring maxA X 2 to correct. MaxA x2 to reposition in bed sit to supine. second transfer supine to EOB MaxA x2. second sit-stand modA x2. Pt tolerated approx 50 seconds of standing before sitting. While at EOB pt completed PROM on left LUE within pain limits in all planes X10. Pt educated on self ranging using RUE to assist LUE in ROM, pt had good unserstanding. Pt stated "my pain level is now a 0" after ROM was completed. Transfer EOB to supine maxA x2. Alarm active with call light in reach. continue with POC when able. LATRICIA Hall/LA Saxena/Chuck
--- NOTE | 2020-01-14 08:20 | NUR ---
PHYSICAL THERAPY Patient seen this am 1;1 for therapy visit and was supine in bed upon therapist arrival. Patient identified by name / and was joined by OT hospital medical assistant for observation only this session. Patient reports 10/10 L shoulder pain from recent fall and presented with mild L hand / forearm edema. Patient transfers supine to sit EOB with MAX A x 2, tolerating static EOB sit x 8 minutes, CGA x 1. Patient needed several v/c's to maintain upright nuetral posture and completed sit to stand MOD A x 2. Patient only able to tolerate approx 20 seconds static stand prior to B knee buckling episode which patient states was due to weak LE"s. Patient instructed on then performed several seated B LE therex, including marching, LAQ x 10 reps each to increase LE strength, demonstrating increased R side weakness. Patient returned to supine in bed and remained with call light, tray table, telephone and bed alarm for safety. Will continue per POC as tolerated, total treatment time 16 minutes. Jerad Tripp, MAGAZINE SUPERVISOR
--- NOTE | 2020-01-14 08:50 | NUR ---
PT STATED NORCO WAS EFFECTIVE IN EASING HER LEFT ARM PAIN.
--- NOTE | 2020-01-14 09:00 | NUR ---
case management visits with patient, she has been referred and accepted at [facility]. she will discharge to [facility] when [facility] passar, and covid testing are complete. patient's son called case management and he was educated on the plan of care for patient. son was in agreement with this, case management will follow
[2020-01-14 12:00] VITALS: BP 154/71
--- NOTE | 2020-01-14 12:50 | NUR ---
Patient accepted to [facility] Pass/rr cleared, facililty stating they will take her with Covid pending since she doesn't trigger with any symptoms and vital signs are good. Notified hospitalists office.
[2020-01-14] MEDS ORDERED: Lantus SC (12:58)
[2020-01-14] MEDS ORDERED: Humalog SQ (12:58)
[2020-01-14] MEDS ORDERED: NYSTOP60 GM T (12:58)
[2020-01-14] MEDS ORDERED: PHARMASSURE V500 MCG PO (12:58)
[2020-01-14] MEDS ORDERED: GABAPENTIN600 MG PO (12:59)
--- NOTE | 2020-01-14 13:14 | NUR ---
Patient is discharged to [facility] via [facility] at 2:00 PM. NH, nursing/rewards consultant and patients aunt Livia all notified. DC orders faxed.
--- NOTE | 2020-01-14 13:23 | NUR ---
DISCHARGE PICTURES TAKEN OF RIGHT ARM AND RIGHT GREAT TOE WOUNDS. PT DID NOT WANT PICTURES TAKEN OF HER "PRIVATE AREAS" TAKEN AGAIN SO EXCORIATED GROIN AND BREAST FOLDS NOT PHOTO'D.
--- NOTE | 2020-01-14 14:09 | NUR ---
[facility] HERE TO TRANSPORT PT TO [facility].
--- NOTE | 2020-01-15 07:05 | NUR ---
OCCUPATIONAL THERAPY CO-SIGN I approve of the Occupational Therapy notes written above. BETO BATRES, OTR/L
--- NOTE | 2020-01-15 09:43 | NUR ---
TRAVELING PLANT OPERATOR SPOKE WITH RN EMERGENCY ROOM NURSE MAGO AT [facility]. BUNNY EXPLAINED DR. DIAS IS WANTING TO ADD CIPRO 500MG 2X A DAY FOR 3 DAYS TO THIS PATIENTS MED LIST. MAGO STATED IT WOULD BE ADDED NO SCRIPTED NEEDED. BUNNY INFORMED RN HOSPITALIST COORDINATOR.
--- NOTE | 2020-01-15 09:53 | NUR ---
PHYSICAL THERAPY CO-SIGN I approve of the Physical Therapy notes written above. Maryjane Marquez PT
== END 2020-01-14 14:09 | DRG 637 ==
LOC: ED 18:54 → EDHOLD 21:00 → 4E 21:00
PROVIDERS: Internal Medicine; Nurse Practitioner Family; ADMIT Family Medicine; ATTEND Family Medicine
DX: E11.65 Type 2 diabetes mellitus with hyperglycemia (principal); N17.0 Acute kidney failure with tubular necrosis; E43 Unspecified severe protein-calorie malnutrition; G93.41 Metabolic encephalopathy; R65.10 Systemic inflammatory response syndrome (SIRS) of non-infectious origin without acute organ dysfunction; I13.0 Hypertensive heart and chronic kidney disease with heart failure and stage 1 through stage 4 chronic kidney disease, or unspecified chronic kidney disease; I50.32 Chronic diastolic (congestive) heart failure; Z68.41 Body mass index [BMI] 40.0-44.9, adult; D72.810 Lymphocytopenia; E11.22 Type 2 diabetes mellitus with diabetic chronic kidney disease; N18.3 Chronic kidney disease, stage 3 (moderate); E78.5 Hyperlipidemia, unspecified; R74.8 Abnormal levels of other serum enzymes; R82.71 Bacteriuria; D72.9 Disorder of white blood cells, unspecified; F32.9 Major depressive disorder, single episode, unspecified; J45.20 Mild intermittent asthma, uncomplicated; J30.2 Other seasonal allergic rhinitis; K21.9 Gastro-esophageal reflux disease without esophagitis; G47.33 Obstructive sleep apnea (adult) (pediatric); S70.02XA Contusion of left hip, initial encounter; E11.40 Type 2 diabetes mellitus with diabetic neuropathy, unspecified; W18.30XA Fall on same level, unspecified, initial encounter; Z79.4 Long term (current) use of insulin; Z88.6 Allergy status to analgesic agent; Z83.3 Family history of diabetes mellitus; Z82.49 Family history of ischemic heart disease and other diseases of the circulatory system; Z83.6 Family history of other diseases of the respiratory system; Y93.89 Activity, other specified; Y92.89 Other specified places as the place of occurrence of the external cause; Y99.8 Other external cause status; Z20.828 Contact with and (suspected) exposure to other viral communicable diseases